=== PATIENT | male | born 1980 | race Caucasian/White ===

== ENCOUNTER 2017-12-08 10:47 | Emergency (ER) | payer OTHER ==
--- OUTSIDE RECORDS SUMMARY | 2017-12-08 10:48 | XMS REPORT | Clinical Summary ---
:1980 Author Organization [facility] Address [address] [place] [id number] Care Team Providers Name Role Phone Asked, No Pcp Primary Care Provider Unavailable Allergies No Known Allergies Current Medications Prescription Sig. Disp. Refills Start Date End Date Status insulin ASPART Inject under the Active (NovoLOG) 100 unit/mL skin 3 (three) injection times a day before meals. lisinopril Take 20 mg by Active (PRINIVIL,ZESTRIL) 20 mouth daily. mg tablet sodium,potassium,mag Please use as 2 Bottle 0 01/15/2017 Active sulfates (SUPREP BOWEL directed PREP KIT) 17.5-3.13-1.6 gram recon solnIndications: Hematochezia, Diarrhea, unspecified type insulin degludec Inject under the Active (TRESIBA FLEXTOUCH skin. U-200) 200 unit/mL (3 mL) insulin pen Active Problems Not on file Encounters Date Type Specialty Care Team Description 02/11/2017 Telephone Gastroenterology Rox Flood MD 02/01/2017 Hospital Encounter Gastroenterology Rox Flood Altered blood in stool; MD René Abdominal pain, vomiting, and diarrhea 02/01/2017 Procedure Pass Gastroenterology 02/01/2017 Surgery Gastroenterology Rox Flood COLONOSCOPY with bx MD René 01/15/2017 Office Visit Gastroenterology Rox Flood Hematochezia ( Primary Dx); MD René Diarrhea, unspecified type after 12/07/2016 Family History Medical History Relation Name Comments No Known Problems Father Cancer Maternal Grandfather Cancer Maternal Uncle No Known Problems Mother Relation Name Status Comments Father Alive Maternal Grandfather Maternal Uncle Mother Alive Social History Tobacco Use Types Packs/Day Years Used Date Never Smoker Alcohol Use Drinks/Week oz/Week Comments Yes OCC Sex Assigned at Date Recorded Not on file Last Filed Vital Signs Vital Sign Reading Time Taken Blood Pressure 133/84 02/01/2017 9:12 AM CDT Pulse 82 02/01/2017 9:12 AM CDT Temperature 36.2 C (97.2 F) 02/01/2017 9:12 AM CDT Respiratory Rate 19 02/01/2017 9:12 AM CDT Oxygen Saturation 95% 02/01/2017 9:12 AM CDT Inhaled Oxygen Concentration - - Weight 86.2 kg (190 lb) 02/01/2017 8:27 AM CDT Height 165.1 cm (5' 5") 02/01/2017 8:27 AM CDT Body Mass Index 31.62 02/01/2017 8:27 AM CDT Plan of Treatment Health Maintenance Due Date Last Done Comments INFLUENZA VACCINE 04/09/2017 Procedures Procedure Name Priority Date/Time Associated Diagnosis Comments COLONOSCOPY with bx 02/01/2017 8:45 AM CDT Altered blood in stool after 12/07/2016 Results Surgical pathology request (02/01/2017 9:45 AM) Component Value Ref Range Surgical pathology report See link below for PDF Lab Report Specimen Performing Laboratory [facility] [address] [place] [address] POC glucose (02/01/2017 8:39 AM) Component Value Ref Range POC glucose 78 65 - 100 mg/dL Comment: Meter ID: [id number] Brush Head Maker: Ashish Perkins Specimen Performing Laboratory [facility] [address] [place] [address] after 12/07/2016 Insurance Payer Benefit Plan / Group Subscriber ID Type Phone Address [facility] xxxxxxxxx PPO ZELALEM GONZALES [employer] Party Self 1980 Home: [address] [facility] Liability [phone] [place] [address]
[2017-12-08 11:56] LABS: Absolute Lymphocytes (CBC) 1.8 K/uL (0.7-4.9); Absolute Monocytes 1.3 K/uL (0.1-1.3); Absolute Neutrophil 9.2 K/uL (1.8-8.0); Basophils % 0.3 % (0-1.3); Eosinophils % 2.4 % (0-4.4); Hematocrit 45.9 % (39.6-49.0); Lymphocytes % 14.6 % (15.3-44.8); MCH 26.3 pg (27.0-35.0); MCV 81.6 fL (80-100); MPV 7.4 fL (7.6-11.3); Monocytes % 10.2 % (3.3-12.3); RBC Red Blood Cell Count 5.63 M/uL (4.33-5.43)
[2017-12-08 11:59] LABS: Potassium 3.9 mEq/L (3.6-5.0)
[2017-12-08 12:01] LABS: Urine Blood NEGATIVE (NEG); Urine Glucose NEGATIVE (NEG); Urine Protein NEGATIVE (NEG); Urine Specific Gravity 1.015 (1.005-1.030)
[2017-12-08] MEDS ORDERED: metroNIDAZOLE 500 MG TABLET ONE (12:11)
[2017-12-08] MEDS ORDERED: CIPROFLOXACIN HCL 500 MG TAB ONE (12:12)
--- NOTE | 2017-12-08 13:46 | RAD REPORT ---
EXAM DESCRIPTION: CT - Abdomen Pelvis W Contrast - 12/08/2017 1:23 pm CLINICAL HISTORY: Abdominal pain. Diarrhea x2 weeks COMPARISON: None. TECHNIQUE: Computed axial tomography of the abdomen and pelvis was obtained. 100 cc Isovue-300 is ad ministered intravenously. Oral contrast was given. All CT scans are performed using dose optimization technique as appropriate and may include automated exposure control or mA/KV adjustment according to patient size. FINDINGS: The liver, spleen, pancreas, adrenals and kidneys appear unremarkable. The appendix is normal caliber. The wall of the the rectum, sigmoid, descending and transverse colon is moderately thickened. Mild th ickening of the wall of the right colon is present. Pneumatosis intestinalis is not seen. Free air is not visualized. A left inguinal hernia contains fat IMPRESSION: Moderate pancolitis
--- NOTE | 2017-12-08 13:51 | EDPHYS ---
Physician Documentation [facility] Name: Ismael Lechuga Age: 37 yrs Sex: Male : 1980 Arrival Date: 12/08/2017 Time: 10:51 Bed 8 Private MD: ED Physician Jude Shirley HPI: 12/08 11:49 This 37 yrs old Male presents to ER via Ambulatory with complaints of kdr Abdominal Pain \T\ diarrhe. 11:49 The patient presents to the emergency department with diarrhea, that is intermittent, kdr abdominal pain, of the right lower quadrant and left lower quadrant, described as achy, burning, crampy, dull, intermittent, vague,\E\ waxing and waning, and does not radiate. Onset: The symptoms/episode began/occurred gradually, 3 week(s) ago. Possible causes: unknown. The symptoms are aggravated by food , The symptoms are alleviated by nothing. Associated signs and symptoms: Pertinent positives: abdominal pain, diarrhea, Pertinent negatives: anorexia, belching, constipation, dysuria, fever, hematuria, nausea, vomiting. Severity of symptoms: At their worst the symptoms were mild moderate just prior to arrival, in the emergency department the symptoms are unchanged. The patient has experienced similar episodes in the past, multiple times, last three weeks. Historical: - Allergies: 11:03 No Known Allergies; la1 - PMHx: 11:03 Diabetes - IDDM; la1 - Immunization history:: Adult Immunizations up to date. - Social history:: Smoking status: Patient/guardian denies using tobacco. ROS: 11:49 Constitutional: Negative for fever, chills, and weight loss, Eyes: Negative for injury, kdr pain, redness, and discharge, ENT: Negative for injury, pain, and discharge, Neck: Negative for injury, pain, and swelling, Cardiovascular: Negative for chest pain, palpitations, and edema, Respiratory: Negative for shortness of breath, cough, wheezing, and pleuritic chest pain, Back: Negative for injury and pain, : Negative for injury, bleeding, discharge, and swelling, MS/Extremity: Negative for injury and deformity, Skin: Negative for injury, rash, and discoloration, Neuro: Negative for headache, weakness, numbness, tingling, and seizure activity. Psych: Negative for depression, anxiety, suicide ideation, homicidal ideation, and hallucinations, Allergy/Immunology: Negative for hives, rash, and allergies, Endocrine: Negative for neck swelling, polydipsia, polyuria, polyphagia, and marked weight changes, Hematologic/Lymphatic: Negative for swollen nodes, abnormal bleeding, and unusual bruising. 11:49 Abdomen/GI: Positive for abdominal pain, diarrhea, abdominal cramps, rectal bleeding. Exam: 11:49 Constitutional: This is a well developed, well nourished patient who is awake, alert, kdr and in no acute distress. Head/Face: Normocephalic, atraumatic. Eyes: Pupils equal round and reactive to light, extra-ocular motions intact. Lids and lashes normal. Conjunctiva and sclera are non-icteric and not injected. Cornea within normal limits. Periorbital areas with no swelling, redness, or edema. Neck: Trachea midline, no thyromegaly or masses palpated, and no cervical lymphadenopathy. Supple, full range of motion without nuchal rigidity, or vertebral point tenderness. No Meningismus. Chest/axilla: Normal chest wall appearance and motion. Nontender with no deformity. No lesions are appreciated. Cardiovascular: Regular rate and rhythm with a normal S1 and S2. No gallops, murmurs, or rubs. Normal PMI, no JVD. No pulse deficits. Respiratory: Lungs have equal breath sounds bilaterally, clear to auscultation and percussion. No rales, rhonchi or wheezes noted. No increased work of breathing, no retractions or nasal flaring. Back: No spinal tenderness. No costovertebral tenderness. Full range of motion. Skin: Warm, dry with normal turgor. Normal color with no rashes, no lesions, and no evidence of cellulitis. MS/ Extremity: Pulses equal, no cyanosis. Neurovascular intact. Full, normal range of motion. Neuro: Awake and alert, GCS 15, oriented to person, place, time, and situation. Cranial nerves II-XII grossly intact. Motor strength 5/5 in all extremities. Sensory grossly intact. Cerebellar exam normal. Normal gait. Psych: Awake, alert, with orientation to person, place and time. Behavior, mood, and affect are within normal limits. 11:49 Abdomen/GI: Inspection: abdomen appears normal, Bowel sounds: diminished, in all quadrants, Palpation: mild abdominal tenderness, The patient has mild periumbilical/ lateral bilateral abdominal discomfort, Rectal exam: Prostate: normal, rectal tone normal, Stool: brown, ruelas, guaiac positive, hemorrhoid(s), are not appreciated, mass, is not appreciated, the exam is chaperoned by the nurse. Vital Signs: 11:04 BP 154 / 97; Pulse 81; Resp 16; Temp 98.3; Pulse Ox 100% on R/A; Weight 86.18 kg; la1 Height 5 ft. 5 in. (165.10 cm); 12:25 BP 153 / 92; Pulse 82; Pulse Ox 96% on R/A; ap3 13:01 BP 149 / 79; Pulse 80; Pulse Ox 97% on R/A; ap3 14:35 BP 138 / 81; Pulse Ox 99% on R/A; ae1 11:04 Body Mass Index 31.62 (86.18 kg, 165.10 cm) la1 MDM: 11:49 Data reviewed: vital signs, nurses notes, lab test result(s), radiologic studies. kdr Counseling: I had a detailed discussion with the patient and/or guardian regarding: the historical points, exam findings, and any diagnostic results supporting the discharge/admit diagnosis, lab results, radiology results. 13:50 Patient medically screened. kdr 12/08 11:22 Order name: CBC with Diff; Complete Time: 12:54 kdr 12/08 11:22 Order name: Chem 7; Complete Time: 12:54 kdr 12/08 11:35 Order name: Rotavirus Antigen; Complete Time: 13:19 ae1 12/08 11:35 Order name: Stool Culture ae1 12/08 11:35 Order name: Ova And Parasites ae1 12/08 11:48 Order name: Occult Blood kdr 12/08 11:22 Order name: CT Abd/Pelvis - W/Contrast; Complete Time: 13:47 kdr 12/08 11:48 Order name: Fecal Leukocyte Stain kdr 12/08 11:54 Order name: Urine Dipstick--Ancillary (enter results); Complete Time: 12:54 ms 12/08 11:54 Order name: Urine Dipstick-Ancillary (obtain specimen); Complete Time: 11:55 ms Administered Medications: 11:55 Drug: Flagyl 500 mg Route: PO; ae1 13:52 Follow up: Response: No adverse reaction ae1 11:55 Drug: Cipro 500 mg Route: PO; ae1 13:52 Follow up: Response: No adverse reaction ae1 Disposition: 12/08/17 13:50 Discharged to Home. Impression: Dailey colitis. - Condition is Stable. - Discharge Instructions: Ulcerative Colitis. - Prescriptions for Lomotil 2.5- 0.025 mg Oral tablet - take 2 tablet by ORAL route 3 times per day As needed; 30 tablet. Bentyl 20 mg Oral Tablet - take 1 tablet by ORAL route every 6 hours As needed; 20 tablet. Cipro 500 mg Oral Tablet - take 1 tablet by ORAL route every 12 hours for 10 days; 20 tablet. Flagyl 500 mg Oral Tablet - take 1 tablet by ORAL route every 6 hours for 10 days; 40 tablet. - Medication Reconciliation Form, Thank You Letter, Antibiotic Education, Prescription Opioid Use form. - Follow up: Private Physician; When: 2 - 3 days; Reason: If symptoms return, Further diagnostic work-up, Recheck today's complaints, Continuance of care, Re-evaluation by your physician. - Problem is new. - Symptoms have improved. Signatures: Dispatcher [employer] Jude Marcum MD MD kdr Solis, Maria ms Attema, Lee RN RN la1 Henrique Chavira RN RN ae1
--- NOTE | 2017-12-08 13:51 | ER ---
Nurse's Notes [facility] Name: Ismael Lechuga Age: 37 yrs Sex: Male : 1980 Arrival Date: 12/08/2017 Time: 10:51 Bed 8 Private MD: Diagnosis: Dailey colitis Presentation: 12/08 11:03 Presenting complaint: Patient states: I have been having a lot of abd pain, cramping, la1 and diarrhea for the last 2 weeks. Pt denies vomiting. Transition of care: patient was not received from another setting of care. Onset of symptoms was December 08, 2017. Care prior to arrival: None. 11:03 Method Of Arrival: Ambulatory la1 11:03 Acuity: RYLEE 3 la1 Historical: - Allergies: 11:03 No Known Allergies; la1 - PMHx: 11:03 Diabetes - IDDM; la1 - Immunization history:: Adult Immunizations up to date. - Social history:: Smoking status: Patient/guardian denies using tobacco. Screenin:48 Abuse screen: Denies threats or abuse. Nutritional screening: No deficits noted. ap3 Tuberculosis screening: No symptoms or risk factors identified. Fall Risk None identified. Assessment: 11:25 General: Appears comfortable, well groomed, Behavior is calm, cooperative. Pain: ap3 Complains of pain in right upper quadrant, left upper quadrant, right lower quadrant and left lower quadrant Pain began 2-3 weeks ago Aggravated by gas. Neuro: Level of Consciousness is awake, alert, obeys commands, Oriented to person, place, time, situation. Cardiovascular: Patient's skin is warm and dry. Respiratory: Airway is patent. GI: Bowel sounds present X 4 quads. Abd is soft and non tender X 4 quads. GI: Reports diarrhea, bloody stool. : No signs and/or symptoms were reported regarding the genitourinary system. EENT: No signs and/or symptoms were reported regarding the EENT system. Derm: Skin is pink, warm \T\ dry. Musculoskeletal: Reports pain in abdomen. 11:34 Reassessment: CT notified via telephone that patient completed PO contrast. ae1 12:55 Reassessment: patient stated he had a sharp cramp in his abdomen, and before he could ap3 get up he soiled himself with feces. Patient requested that he clean himself, proper cleaning material, new gown and fresh linens provided. Bedside commode offered, but patient denied the need stated that if he can take off the monitoring equipment himself and not have to wait for a nurse to remove it, that he should be able to make it to the restroom next time. 14:12 Reassessment: Patient awaiting provider to discuss results and plan of care. ae1 Vital Signs: 11:04 BP 154 / 97; Pulse 81; Resp 16; Temp 98.3; Pulse Ox 100% on R/A; Weight 86.18 kg; la1 Height 5 ft. 5 in. (165.10 cm); 12:25 BP 153 / 92; Pulse 82; Pulse Ox 96% on R/A; ap3 13:01 BP 149 / 79; Pulse 80; Pulse Ox 97% on R/A; ap3 14:35 BP 138 / 81; Pulse Ox 99% on R/A; ae1 11:04 Body Mass Index 31.62 (86.18 kg, 165.10 cm) la1 ED Course: 10:51 Patient arrived in ED. rg4 10:59 Jude Shirley MD is Attending Physician. kdr 11:03 Triage completed. la1 11:04 Henrique Chavira, SALLY is Primary Nurse. ae1 11:04 Arm band placed on left wrist. la1 11:27 Served as a table maker during rectal exam. Guaic positive. ae1 11:30 Inserted saline lock: 18 gauge in right antecubital area, using aseptic technique. ap3 Blood collected. 11:41 Urine collected: clean catch specimen, clear, ramiro colored. jb1 13:[address] via wheelchair. ap3 13:04 Patient has correct armband on for positive identification. Placed in gown. Bed in low ap3 position. Call light in reach. Side rails up X 1. 13:23 CT Abd/Pelvis - W/Contrast In Process Unspecified. EDMS 14:34 IV discontinued, intact, bleeding controlled, No redness/swelling at site. Pressure ae1 dressing applied. Administered Medications: 11:55 Drug: Flagyl 500 mg Route: PO; ae1 13:52 Follow up: Response: No adverse reaction ae1 11:55 Drug: Cipro 500 mg Route: PO; ae1 13:52 Follow up: Response: No adverse reaction ae1 Outcome: 13:50 Discharge ordered by . kdr 14:31 Attestation : I agree with the charting done by Kenn Reyna, school of nursing director. . ae1 14:31 Discharged to home ambulatory. 14:31 Condition: stable 14:31 Discharge instructions given to patient, Instructed on discharge instructions, follow up and referral plans. medication usage, Demonstrated understanding of instructions, Prescriptions given X 3. 14:34 Patient left the ED. ae1 Signatures: Dispatcher [employer] EDMS Dwayne Lechuga jbJude Dixon MD MD kdr Zachary Carmen RN RN la1 Henrique Chavira RN RN ae1 Sulma White rg4 Kenn Reyna3
== END 2017-12-08 14:34 | disposition home or self-care (01) ==
LOC: ER 10:47
DX: K52.89 Other specified noninfective gastroenteritis and colitis (principal)
CPT/HCPCS: 36415; 74177; 80048; 81003; 85025; 87045; 87046; 87177; 87209; 87425; 89055; 99284; Q9967

== ENCOUNTER 2018-01-07 13:08 | Emergency (ER) | payer OTHER ==
--- OUTSIDE RECORDS SUMMARY | 2018-01-07 13:10 | XMS REPORT | Clinical Summary ---
:1980 Author Organization [facility] Address [address] [place] [id number] Care Team Providers Name Role Phone Asked, [...] Dx); MD René Diarrhea, unspecified type after 01/06/2017 Family History Medical History Relation Name Comments [...] Due Date Last Done Comments INFLUENZA VACCINE 04/09/2018 Procedures Procedure Name Priority Date/Time Associated Diagnosis Comments COLONOSCOPY with bx 02/01/2017 8:45 AM CDT Altered blood in stool after 01/06/2017 Results Surgical pathology request (02/01/2017 9:45 AM) Component Value Ref Range Surgical pathology report See link below for PDF Lab Report Specimen Performing Laboratory [facility] [address] [place] [address] POC glucose (02/01/2017 8:39 AM) Component Value Ref Range POC glucose 78 65 - 100 mg/dL Comment: Meter ID: [id number] Night Cleaner: Ashish Perkins Specimen Performing Laboratory [facility] [address] [place] [address] after 01/06/2017 Insurance Payer Benefit Plan / Group Subscriber ID Type Phone Address [facility] [employer] xxxxxxxxx PPO ZELALEM GONZALES [employer] Self 1980 Home: [address] [facility] Liability [phone] [place] [address]
[2018-01-07] MEDS ORDERED: CLINDAMYCIN 600MG/D5W 600 MG/50 ML BAG IV ONE (14:20)
--- NOTE | 2018-01-07 14:35 | EDPHYS ---
Physician Documentation [facility] Name: Ismael Lechuga Age: 37 yrs Sex: Male : 1980 Arrival Date: 01/07/2018 Time: 13:11 Bed 30 Private MD: None, None ED Physician Elizabeth Mast HPI: 01/07 14:06 This 37 yrs old Male presents to ER via Ambulatory with complaints of Hand ma2 Swelling. 14:06 The patient or guardian reports pain. The complaints affect the right hand diffusely, ma2 right hand and right arm. Context: resulted from IV line inserted yesterday for colonoscopy . Onset: The symptoms/episode began/occurred gradually, 1 day(s) ago. Severity of symptoms: At their worst the symptoms were moderate. The patient has not experienced similar symptoms in the past. Historical: - Allergies: 13:21 No Known Allergies; ch - Home Meds: 13:21 Novolog 100 unit/mL Sub-Q soln [Active]; tresiva insulin [Active]; ch - PMHx: 13:21 Diabetes - IDDM; ch - PSHx: 13:21 gi scope; eye sx; ch - Immunization history:: Adult Immunizations up to date. - Social history:: Smoking status: Patient/guardian denies using tobacco, Patient/guardian denies using alcohol, street drugs, Patient/guardian denies using. - Family history:: not pertinent. ROS: 14:06 MS/extremity: Positive for swelling, tenderness. ma2 14:06 All other systems are negative. 14:40 Constitutional: Negative for fever, chills, and weight loss. ma2 Exam: 14:06 Constitutional: This is a well developed, well nourished patient who is awake, alert, ma2 and in no acute distress. Head/Face: Normocephalic, atraumatic. Chest/axilla: Normal chest wall appearance and motion. Nontender with no deformity. No lesions are appreciated. Cardiovascular: Regular rate and rhythm with a normal S1 and S2. No gallops, murmurs, or rubs. Normal PMI, no JVD. No pulse deficits. Respiratory: Lungs have equal breath sounds bilaterally, clear to auscultation and percussion. No rales, rhonchi or wheezes noted. No increased work of breathing, no retractions or nasal flaring. Neuro: Awake and alert, GCS 15, oriented to person, place, time, and situation. Cranial nerves II-XII grossly intact. Motor strength 5/5 in all extremities. Sensory grossly intact. Cerebellar exam normal. Normal gait. 14:06 Musculoskeletal/extremity: Extremities: noted in the right hand: erythema, swelling, warmth , ROM: Circulation is intact in all extremities. Sensation intact. Compartment Syndrome exam of affected extremity: is normal. Vital Signs: 13:21 BP 128 / 76; Pulse 89; Resp 18; Temp 98.6(O); Pulse Ox 99% on R/A; Weight 83.91 kg; ch Height 5 ft. 5 in. (165.10 cm); Pain 5/10; 15:13 BP 125 / 84; Pulse 67; Resp 16; Pulse Ox 100% on R/A; kr2 13:21 Body Mass Index 30.79 (83.91 kg, 165.10 cm) ch MDM: 13:57 Patient medically screened. ma2 14:06 Differential diagnosis: contusion, abrasion, tendonitis, right hand cellulitiis. ma2 14:10 Data reviewed: vital signs, nurses notes, EMS record, lab test result(s). Counseling: I ma2 had a detailed discussion with the patient and/or guardian regarding: the historical points, exam findings, and any diagnostic results supporting the discharge/admit diagnosis, the presence of at least one elevated blood pressure reading (>120/80) during this emergency department visit, the need for outpatient follow up. 14:10 ED course: swelling is mild, he received clindamycin IV, blood cultures sent, given ma2 cellutlitis and swelling is mild, will pursue outpatient management, if no improvement in 1 day he will come back to ED for admission, hand elevation and IV abx. . 01/07 13:58 Order name: CBC with Diff; Complete Time: 14:41 ma2 01/07 13:58 Order name: NOLAN bernal Administered Medications: 14:26 Drug: Clindamycin 600 mg Route: IVPB; Infused Over: 30 mins; Site: left antecubital; kr2 15:13 Follow up: Response: No adverse reaction; IV Status: Completed infusion kr2 Disposition: 01/07/18 14:35 Discharged to Home. Impression: Cellulitis of right upper limb. - Condition is Stable. - Discharge Instructions: Cellulitis. - Prescriptions for Clindamycin HCl 300 mg Oral Capsule - take 1 capsule by ORAL route every 6 hours for 10 days; 40 capsule. Tylenol- Codeine #3 300-30 mg Oral Tablet - take 2 tablet by ORAL route every 6 hours As needed; 6 tablet. - Work release form, Medication Reconciliation Form, Thank You Letter, Antibiotic Education, Prescription Opioid Use form. - Follow up: Private Physician; When: Tomorrow; Reason: Continuance of care. - Problem is new. - Symptoms are unchanged. Signatures: Dispatcher [employer] EDJoyce Jerry RN RN Sharon Arango RN RN kr2 Elizabeth Mast MD MD ma2
--- NOTE | 2018-01-07 14:35 | ER ---
Nurse's Notes [facility] Name: Ismael Lechuga Age: 37 yrs Sex: Male : 1980 Arrival Date: 01/07/2018 Time: 13:11 Bed 30 Private MD: None, None Diagnosis: Cellulitis of right upper limb Presentation: 01/07 13:19 Presenting complaint: Patient states: I had an IV in my R hand yesterday for an endoscopy. I woke up and it was red and swollen. last night it was tender and there was a hard vein. but its swelling more and more every hour. Transition of care: patient was not received from another setting of care. Onset of symptoms was January 06, 2018 at 11:30. Initial Sepsis Screen: Does the patient meet any 2 criteria? No. Patient's initial sepsis screen is negative. Does the patient have a suspected source of infection? No. Patient's initial sepsis screen is negative. Care prior to arrival: None. 13:19 Method Of Arrival: Ambulatory 13:19 Acuity: RYLEE 3 13:[address] Baldwin was physician for endoscopy. Triage Assessment: 13:21 General: Appears in no apparent distress. comfortable, Behavior is calm, cooperative, ch appropriate for age. Pain: Complains of pain in right hand Pain currently is 5 out of 10 on a pain scale. Historical: - Allergies: 13:21 No Known Allergies; - Home Meds: 13:21 Novolog 100 unit/mL Sub-Q soln [Active]; tresiva insulin [Active]; ch - PMHx: 13:21 Diabetes - IDDM; - PSHx: 13:21 gi scope; eye sx; - Immunization history:: Adult Immunizations up to date. - Social history:: Smoking status: Patient/guardian denies using tobacco, Patient/guardian denies using alcohol, street drugs, Patient/guardian denies using. - Family history:: not pertinent. Screenin:00 Abuse screen: Denies threats or abuse. Denies injuries from another. Nutritional kr2 screening: No deficits noted. Tuberculosis screening: No symptoms or risk factors identified. Fall Risk None identified. Assessment: 14:00 General: Appears in no apparent distress. comfortable, slender, well groomed, well kr2 developed, well nourished, Behavior is calm, cooperative. Pain: Complains of pain in right hand Pain radiates to right arm Pain currently is 7 out of 10 on a pain scale. Quality of pain is described as aching, throbbing, Pain began today Is continuous. Neuro: Level of Consciousness is awake, alert, obeys commands, Oriented to person, place, time, situation, Intact. Cardiovascular: Capillary refill < 3 seconds in bilateral fingers Patient's skin is warm and dry. Respiratory: Airway is patent Respiratory effort is even, unlabored, Respiratory pattern is regular, symmetrical. GI: Abdomen is flat, non-distended. :. Derm: Skin is intact, is healthy with good turgor, Skin is pink, warm \T\ dry. Derm: redness to right hand and forearm. Musculoskeletal: Swelling present in right arm and right hand. Vital Signs: 13:21 BP 128 / 76; Pulse 89; Resp 18; Temp 98.6(O); Pulse Ox 99% on R/A; Weight 83.91 kg; ch Height 5 ft. 5 in. (165.10 cm); Pain 5/10; 15:13 BP 125 / 84; Pulse 67; Resp 16; Pulse Ox 100% on R/A; kr2 13:21 Body Mass Index 30.79 (83.91 kg, 165.10 cm) ED Course: 13:11 Patient arrived in ED. mr 13:12 None, None is Private Physician. mr 13:20 Triage completed. ch 13:21 Arm band placed on left wrist. Patient placed in waiting room. 13:57 Elizabeth Mast MD is Attending Physician. ma2 14:00 Sharon Arango, SALLY is Primary Nurse. kr2 14:00 Patient has correct armband on for positive identification. Bed in low position. Call kr2 light in reach. Side rails up X2. Pulse ox on. NIBP on. Door closed. Head of bed elevated. 14:05 Inserted saline lock: 22 gauge in left forearm, using aseptic technique. Blood kr2 collected. 15:12 No provider procedures requiring assistance completed. IV discontinued, intact, kr2 bleeding controlled, No redness/swelling at site. Pressure dressing applied. Administered Medications: 14:26 Drug: Clindamycin 600 mg Route: IVPB; Infused Over: 30 mins; Site: left antecubital; kr2 15:13 Follow up: Response: No adverse reaction; IV Status: Completed infusion kr2 Outcome: 14:35 Discharge ordered by . gabe 15:12 Discharged to home ambulatory. kr2 15:12 Condition: good 15:12 Discharge instructions given to patient, Instructed on discharge instructions, follow up and referral plans. medication usage, Demonstrated understanding of instructions, follow-up care, medications, Prescriptions given X 2. 15:14 Patient left the ED. kr2 Signatures: Joyce Bronson RN RN ch Rivera, Maria mr Reaves, Karey, RN RN kr2 Elizabeth Mast MD MD ma2
[2018-01-07 14:36] LABS: Absolute Lymphocytes (CBC) 1.7 K/uL (0.7-4.9); Absolute Monocytes 0.9 K/uL (0.1-1.3); Absolute Neutrophil 7.2 K/uL (1.8-8.0); Basophils % 0.4 % (0-1.3); Eosinophils % 1.6 % (0-4.4); Hematocrit 40.2 % (39.6-49.0); Lymphocytes % 16.9 % (15.3-44.8); MCH 26.2 pg (27.0-35.0); MCV 78.8 fL (80-100); MPV 7.2 fL (7.6-11.3); Monocytes % 8.6 % (3.3-12.3); RBC Red Blood Cell Count 5.09 M/uL (4.33-5.43)
[2018-01-07 14:43] LABS: Potassium 3.7 mEq/L (3.6-5.0)
== END 2018-01-07 15:14 | disposition home or self-care (01) ==
LOC: ER 13:08
DX: L03.113 Cellulitis of right upper limb (principal); E11.9 Type 2 diabetes mellitus without complications; Z79.4 Long term (current) use of insulin
CPT/HCPCS: 36415; 80048; 85025; 96365; 99284